=== PATIENT | male | born 1940 ===

== ENCOUNTER 2022-08-14 11:29 | Inpatient (IN) ==
[2022-08-14 14:32] LABS: ABS Lymphocytes 0.5 10^3/ul (1.0-4.8); ABS Monocytes 0.7 10^3/ul (0-0.8); ABS Neutrophils 9.7 10^3/ul (1.5-7.7); Hematocrit 48 % (42-52); Hemoglobin 15.9 g/dL (14.0-18.0); Lymphocyte % 4.7 %; Mean Corpuscular HGB Conc 33 g/dL (31-36); Mean Corpuscular Hemoglobin 32 pg (27-31); Mean Corpuscular Volume 96 fL (80-94); Mean Platelet Volume 7.4 fL (7.4-10.4); Platelet Count 158 10^3/uL (150-450); Red Cell Distribution Width 14 % (10-15); White Blood Count 10.9 10^3/uL (3.5-10.8)
[2022-08-14 15:26] LABS: Albumin 4.4 g/dL (3.2-5.2); CO2 Carbon Dioxide 16 mmol/L (22-32); Calcium 9.2 mg/dL (8.6-10.3); Sodium 137 mmol/L (135-145)
[2022-08-14 15:31] LABS: ALT 28 U/L (7-52); Alkaline Phosphatase 81 U/L (35-149); Blood Urea Nitrogen 14 mg/dL (6-24); Globulin 2.2 g/dL (2-4); Glucose 101 mg/dL (70-100); Total Protein 6.6 g/dL (6.4-8.9); eGFR CKD-EPI 95.7 (>60)
[2022-08-14 15:35] LABS: Anion Gap 8 mmol/L (2-11); Chloride 113 mmol/L (101-111)
[2022-08-14 17:16] LABS: Urine Appearance Turbid; Urine Bilirubin Negative (Negative); Urine Blood Negative (Negative); Urine Color Yellow; Urine Glucose Negative (Negative); Urine Ketones Trace (Negative); Urine Nitrite Negative (Negative); Urine Protein Negative (Negative); Urine Specific Gravity 1.013 (1.002-1.030); Urine Urobilinogen Negative (Negative)
[2022-08-14 19:53] LABS: Potassium Redraw 3.5 mmol/L (3.5-5.0)
[2022-08-14] MEDS: Heparin 5000 UNITS/ML 1 mL VIAL SUBCUT SCH (21:40)
[2022-08-14] MEDS: BRINZOLAMIDE BRIMONIDINE BOTH EYES SCH (21:41)
[2022-08-14] MEDS: Latanoprost 0.005% 2.5 ml BTL BOTH EYES SCH (21:41)
[2022-08-14] MEDS ORDERED: Morphine 2 MG/ML SYRINGE IV PRN (22:01)
[2022-08-15] MEDS: Heparin 5000 UNITS/ML 1 mL VIAL SUBCUT SCH (05:47)
[2022-08-15 06:37] LABS: ABS Lymphocytes 0.7 10^3/ul (1.0-4.8); ABS Monocytes 0.9 10^3/ul (0-0.8); ABS Neutrophils 5.6 10^3/ul (1.5-7.7); Eosinophil % 0.7 %; Hematocrit 42 % (42-52); Hemoglobin 14.2 g/dL (14.0-18.0); Lymphocyte % 9.8 %; Mean Corpuscular HGB Conc 34 g/dL (31-36); Mean Corpuscular Hemoglobin 32 pg (27-31); Mean Corpuscular Volume 95 fL (80-94); Mean Platelet Volume 8.1 fL (7.4-10.4); Platelet Count 145 10^3/uL (150-450); Red Cell Distribution Width 14 % (10-15); White Blood Count 7.3 10^3/uL (3.5-10.8)
[2022-08-15 06:57] LABS: Calcium 8.8 mg/dL (8.6-10.3); Potassium 3.5 mmol/L (3.5-5.0); eGFR CKD-EPI 92.4 (>60)
[2022-08-15] MEDS ORDERED: Lactated Ringers 1000 ml BAG 1,000 ML IV ONE (07:30)
[2022-08-15] MEDS ORDERED: Naloxone 0.4 mg VIAL 0.4 mg/ml 1 ml VIAL IV PRN (07:53)
[2022-08-15] MEDS ORDERED: fentaNYL 100 mcg/2 ml 50 MCG/ML VIAL IV PRN (07:53)
[2022-08-15] MEDS ORDERED: Ondansetron 4 mg VIAL 2 MG/ML 2 ml VIAL IV PRN (07:53)
[2022-08-15] MEDS ORDERED: fentaNYL 100 mcg/2 ml 50 MCG/ML VIAL ONE (08:05)
[2022-08-15] MEDS ORDERED: Lidocaine 2% PF 5 ML VIAL ONE (08:05)
[2022-08-15] MEDS ORDERED: Midazolam 2 mg/2 ml VIAL 1 mg/ml 2 ml VIAL (2 mg) ONE (08:05)
[2022-08-15] MEDS ORDERED: ceFAZolin 2 GM PREMIX 2 GM/50 ML BAG ONE (08:26)
[2022-08-15] MEDS ORDERED: Ondansetron 4 mg VIAL 2 MG/ML 2 ml VIAL ONE (08:38)
[2022-08-15] MEDS ORDERED: Propofol 10 MG/ML 20 ML BTL ONE (08:38)
[2022-08-15] MEDS: Timolol 0.5% OPTH.SOL BTL BOTH EYES SCH (08:58)
[2022-08-15] MEDS: BRINZOLAMIDE BRIMONIDINE BOTH EYES SCH ×3 (08:58→20:04)
[2022-08-15] MEDS ORDERED: Acetaminophen IV 1 GM/100ML 1,000 MG/100 ML BAG IV ONE (09:11)
[2022-08-15] MEDS ORDERED: ceFAZolin 1 GM in Dextrose 1 GM/50 ML BAG IVPB SCH (12:00)
[2022-08-15] MEDS: ceFAZolin 1 GM in Dextrose 1 GM/50 ML BAG IVPB SCH (15:56)
[2022-08-15] MEDS: Latanoprost 0.005% 2.5 ml BTL BOTH EYES SCH (20:27)
[2022-08-16] MEDS ORDERED: Magnesium Hydroxide LIQ 30 ML UDC PO PRN (02:31)
[2022-08-16] MEDS: ceFAZolin 1 GM in Dextrose 1 GM/50 ML BAG IVPB SCH ×2 (03:07→08:06)
[2022-08-16] MEDS: Enoxaparin 40 MG/0.4 ML SYR SUBCUT SCH (08:06)
[2022-08-16] MEDS: BRINZOLAMIDE BRIMONIDINE BOTH EYES SCH ×3 (08:07→20:47)
[2022-08-16] MEDS: Timolol 0.5% OPTH.SOL BTL BOTH EYES SCH (08:09)
[2022-08-16] MEDS: Latanoprost 0.005% 2.5 ml BTL BOTH EYES SCH (20:38)
[2022-08-17] MEDS: Enoxaparin 40 MG/0.4 ML SYR SUBCUT SCH (09:17)
[2022-08-17] MEDS: BRINZOLAMIDE BRIMONIDINE BOTH EYES SCH ×3 (09:18→21:22)
[2022-08-17] MEDS: Timolol 0.5% OPTH.SOL BTL BOTH EYES SCH (09:19)
[2022-08-17] MEDS: Latanoprost 0.005% 2.5 ml BTL BOTH EYES SCH (21:01)
[2022-08-18 06:16] LABS: ABS Eosinophils 0.3 10^3/ul (0-0.6); ABS Monocytes 0.7 10^3/ul (0-0.8); ABS Neutrophils 3.1 10^3/ul (1.5-7.7); Eosinophil % 5.2 %; Hematocrit 37 % (42-52); Hemoglobin 12.3 g/dL (14.0-18.0); Mean Corpuscular HGB Conc 33 g/dL (31-36); Mean Corpuscular Hemoglobin 32 pg (27-31); Mean Corpuscular Volume 95 fL (80-94); Mean Platelet Volume 7.4 fL (7.4-10.4); Platelet Count 158 10^3/uL (150-450); Red Blood Count 3.89 10^6 /uL (4.18-5.48); Red Cell Distribution Width 13 % (10-15); White Blood Count 5.1 10^3/uL (3.5-10.8)
[2022-08-18 06:31] LABS: Calcium 8.5 mg/dL (8.6-10.3); Potassium 3.9 mmol/L (3.5-5.0); eGFR CKD-EPI 100.2 (>60)
[2022-08-18] MEDS ORDERED: Potassium Chlor 10 meq TAB PO ONE (07:00)
[2022-08-18 07:08] VITALS: BP 130/77
[2022-08-18] MEDS: Enoxaparin 40 MG/0.4 ML SYR SUBCUT SCH (08:49)
[2022-08-18] MEDS: BRINZOLAMIDE BRIMONIDINE BOTH EYES SCH (08:49)
[2022-08-18] MEDS: Timolol 0.5% OPTH.SOL BTL BOTH EYES SCH (08:50)
[2022-08-18 09:27] LABS: Hematocrit 43 % (42-52); Mean Corpuscular HGB Conc 33 g/dL (31-36); Mean Corpuscular Hemoglobin 32 pg (27-31); Mean Corpuscular Volume 96 fL (80-94); Mean Platelet Volume 7.1 fL (7.4-10.4); Platelet Count 179 10^3/uL (150-450); Red Blood Count 4.43 10^6 /uL (4.18-5.48); Red Cell Distribution Width 14 % (10-15); White Blood Count 5.5 10^3/uL (3.5-10.8)
== END 2022-08-18 10:02 | DRG 482 ==
LOC: EDHOLD 11:29 → ED 11:29 → SSU 11:39 → SUATTDRO 15:53 → SSU 18:42
PROVIDERS: ADMIT Internal Medicine; ATTEND Family Medicine

== ENCOUNTER 2022-08-18 07:40 | Inpatient (IN) ==
[2022-08-18] MEDS ORDERED: Magnesium Hydroxide LIQ 30 ML UDC PO PRN (12:02)
[2022-08-18] MEDS ORDERED: Senna TAB 8.6 mg TAB PO PRN (12:02)
[2022-08-18] MEDS: PTO:Brinzolamid/Brimonidin OPH(NF) 1 DROP BTL BOTH EYES SCH ×2 (15:12→20:42)
[2022-08-18] MEDS ORDERED: Latanoprost 0.005% 2.5 ml BTL BOTH EYES SCH (21:00)
[2022-08-19 07:39] LABS: ABS Eosinophils 0.2 10^3/ul (0-0.6); ABS Monocytes 0.6 10^3/ul (0-0.8); Eosinophil % 4.2 %; Hematocrit 40 % (42-52); Hemoglobin 13.3 g/dL (14.0-18.0); Lymphocyte % 20.8 %; Mean Corpuscular HGB Conc 33 g/dL (31-36); Mean Corpuscular Hemoglobin 32 pg (27-31); Mean Corpuscular Volume 96 fL (80-94); Mean Platelet Volume 7.3 fL (7.4-10.4); Platelet Count 180 10^3/uL (150-450); Red Blood Count 4.16 10^6 /uL (4.18-5.48); Red Cell Distribution Width 13 % (10-15); White Blood Count 4.8 10^3/uL (3.5-10.8)
[2022-08-19] MEDS: Enoxaparin 40 MG/0.4 ML SYR SUBCUT SCH (07:51)
[2022-08-19 08:08] LABS: Albumin 3.4 g/dL (3.2-5.2); Albumin/Globulin Ratio 1.8 (1-3); Calcium 8.9 mg/dL (8.6-10.3); Globulin 1.9 g/dL (2-4); Total Bilirubin 0.6 mg/dL (0.2-1.0); Total Protein 5.3 g/dL (6.4-8.9); eGFR CKD-EPI 100.2 (>60)
[2022-08-19] MEDS: PTO:Brinzolamid/Brimonidin OPH(NF) 1 DROP BTL BOTH EYES SCH ×3 (08:10→20:15)
[2022-08-19] MEDS ORDERED: Timolol 0.5% OPTH.SOL BTL BOTH EYES SCH (09:00)
[2022-08-19] MEDS ORDERED: Latanoprost 0.005% 2.5 ml BTL BOTH EYES SCH (21:00)
[2022-08-20 06:39] VITALS: BP 155/74
[2022-08-20] MEDS ORDERED: PTO:Timolol 0.5% OPTH.SOL BTL BOTH EYES SCH (09:00)
[2022-08-20] MEDS: PTO:Brinzolamid/Brimonidin OPH(NF) 1 DROP BTL BOTH EYES SCH (09:37)
[2022-08-20] MEDS: Enoxaparin 40 MG/0.4 ML SYR SUBCUT SCH (09:37)
== END 2022-08-20 10:00 | disposition home health service (06) | DRG 561 ==
LOC: PMRU 10:03
PROVIDERS: ADMIT Physical Medicine & Rehabilitation; ATTEND Physical Medicine & Rehabilitation